=== PATIENT | female | born 1950 | race Caucasian/White ===

== ENCOUNTER 2017-06-08 07:57 | Outpatient (CLI) | payer BC | END 2017-06-08 07:58 | disposition home or self-care (01) | LOC: BICMAMMO 07:57 | PROVIDERS: ATTEND Internal Medicine | DX: Z78.0 Asymptomatic menopausal state (principal) | CPT/HCPCS: 77080 ==

== ENCOUNTER 2017-12-31 12:13 | Outpatient (CLI) | payer MEDICARE, OTHER ==
--- NOTE | 2017-12-31 15:08 | MRI ---
MRI OF LEFT HIP PERFORMED WITHOUT CONTRAST ENHANCEMNET: HISTORY: Left hip pain. COMPARISON: A 11/06/15 examination. FINDINGS: There are some arthritic changes of the lower lumbar spine. Pelvic ring is intact. SI joints are sy mmetric. I see no evidence for any type of pelvic insufficiency fracture. There are some arthritic changes of the symphysis. Visualized intrapelvic contents appear unremarkable. There is some mild hamstring tendinopathy present bilaterally. Small field of view images of the left hip show some increased signal change of the anterior superior labrum suggesting some degenerative-type tear that appears somewhat more prominent than on the prior exam. On the previous study, there are some trochanteric bursitis-type changes which have definitely improv ed as compared to that exam. There is some mild atrophy of the gluteus minimus muscle. Some persist ent increased signal change near the more muscular attachment of the gluteus minimus tendon suggestin g some mild tendinopathy. The gluteus and minimus tendon also shows some mild tendinopathy changes a nd some increased signal change which could be on the basis of a lower-grade partial tear. There are some arthritic changes of the left hip joint similar to the prior exam. IMPRESSION: 1. Suggestion of a degenerative-type tear of the anterior superior labrum. This appears slightly mo re prominent than on the previous examination. It is somewhat difficult to assess without arthrograp hy. 2. Improvement to the trochanteric bursitis changes still with some tendinopathy changes of the glut eus medius tendon. Partial low-grade tear of the gluteus minimus tendon insertion. 3. Mild hamstring tendinopathy change. POS: NGOC
== END 2017-12-31 12:14 | disposition home or self-care (01) ==
LOC: BICMRI 12:13
PROVIDERS: ATTEND Orthopaedic Surgery
DX: M76.892 Other specified enthesopathies of left lower limb, excluding foot (principal); S76.012A Strain of muscle, fascia and tendon of left hip, initial encounter

== ENCOUNTER 2018-09-17 08:56 | Outpatient (CLI) | payer MEDICARE, OTHER ==
--- NOTE | 2018-09-17 09:18 | RAD ---
Exam:Left hand 3 views HISTORY: Left hand pain. Swelling. COMPARISON: None FINDINGS: There is soft tissue swelling. There is degenerative change in the first carpometacarpal jonathon int space. There is calcification of the triangular fibrocartilage complex. There is mild loss of joint space height involving the distal interphalangeal joint space of the seco nd digit. Additional mild degenerative change involving the proximal interphalangeal joint fourth digit. There appears to be soft tissue swelling. No fractures. Radial styloid and ulnar styloid appear to be preserved. IMPRESSION: Multi focal mild to moderate degenerative change
== END 2018-09-17 08:57 | disposition home or self-care (01) ==
LOC: BICRAD 08:56
DX: M35.3 Polymyalgia rheumatica (principal); M19.042 Primary osteoarthritis, left hand

== ENCOUNTER 2018-12-31 12:07 | Outpatient (CLI) | payer MEDICARE, OTHER ==
--- NOTE | 2018-12-31 12:55 | MMO ---
Bilateral MAMMO Bilat Screen [facility]. CLINICAL HISTORY: Patient is 68 years old and is seen for screening. The patient has the following family history of breast cancer: maternal grandmother, at age 65. The patient has no personal history of cancer. The patient has a history of right Excisional Biopsy in 2004 - benign and bilateral Breast reduction in 1982 - benign. VIEWS: The views performed were: bilateral craniocaudal with tomosynthesis and bilateral mediolateral oblique with tomosynthesis. FILMS COMPARED: The present examination has been compared to prior imaging studies performed at [facility] on 04/08/2012, 03/20/2014, 03/29/2015 and 01/06/2017. This study has been interpreted with the assistance of computer-aided detection. MAMMOGRAM FINDINGS: There are scattered fibroglandular densities. There are benign appearing calcifications seen in both breasts. There are no suspicious masses, suspicious calcifications, or new areas of architectural distortion. IMPRESSION: THERE IS NO MAMMOGRAPHIC EVIDENCE OF MALIGNANCY. A ROUTINE FOLLOW-UP MAMMOGRAM IN 1 YEAR IS RECOMMENDED. THE RESULTS OF THIS EXAM WERE SENT TO THE PATIENT. ACR BI-RADS Category 2 - Benign finding MAMMOGRAPHY NOTE: 1. A negative mammogram report should not delay a biopsy if a dominant of clinically suspicious mass is present. 2. Approximately 10% to 15% of breast cancers are not detected by mammography. 3. Adenosis and dense breasts may obscure an underlying neoplasm. Reported by: PEDRO SAWYER MD Electonically Signed: [id number]
== END 2018-12-31 12:08 | disposition home or self-care (01) ==
LOC: BICMAMMO 12:07
PROVIDERS: ATTEND Internal Medicine
DX: Z12.31 Encounter for screening mammogram for malignant neoplasm of breast (principal); Z80.3 Family history of malignant neoplasm of breast; Z91.89 Other specified personal risk factors, not elsewhere classified; Z98.82 Breast implant status
CPT/HCPCS: 77063; 77067

== ENCOUNTER 2019-12-07 09:36 | Outpatient (CLI) | payer MEDICARE, OTHER ==
--- NOTE | 2019-12-07 10:07 | ULT ---
Exam: Bilateral renal ultrasound HISTORY: Acute renal insult. COMPARISON: None FINDINGS: Right kidney: Normal cortical echotexture. No hydronephrosis. Right kidney measurements: 9.7 x 5.3 x 6.0 cm. Left kidney: Normal cortical echotexture. No hydronephrosis. Small 0.7 cm anechoic focus in the infer ior pole may represent a cyst. Left kidney measurements 6.5 x 5.6 x 10.4 cm. Urinary bladder: No mucosal abnormality. Bilateral ureteral jets are identified. Bladder volume is 12 9 mL. IMPRESSION: 1. No hydronephrosis 2. Results study discussed with Dr. Barreto 12/07/2019 10:05 AM Code CR
== END 2019-12-07 09:37 | disposition home or self-care (01) ==
LOC: BICULT 09:36
PROVIDERS: ATTEND Surgery
DX: N28.9 Disorder of kidney and ureter, unspecified (principal)
CPT/HCPCS: 36415; 76770; 80053; 81001; 82570; 83930; 83935; 84300

== ENCOUNTER 2019-12-07 14:20 | Day surgery (SDC) | payer MEDICARE, OTHER ==
[2019-12-07] MEDS ORDERED: Ondansetron PF 4 MG/2 ML Vial IVP PRN (14:39)
[2019-12-07 15:36] VITALS: BP 143/72; TEMP 98.6
[2019-12-07] MEDS: Sodium Chloride 0.9% 1,000 ML IV SCH ×2 (15:36→16:43)
== END 2019-12-07 17:23 | disposition home or self-care (01) ==
LOC: ONC/OP 14:20
PROVIDERS: ATTEND Surgery
DX: E86.0 Dehydration (principal); Z88.0 Allergy status to penicillin; Z88.1 Allergy status to other antibiotic agents
CPT/HCPCS: 96360; 96361

== ENCOUNTER 2019-12-09 07:21 | Day surgery (SDC) | payer MEDICARE, OTHER ==
[2019-12-09] MEDS ORDERED: Sodium Chloride 0.9% 20 ML ONE (08:26)
[2019-12-09] MEDS ORDERED: Ondansetron PF 4 MG/2 ML Vial IVP PRN (08:28)
[2019-12-09] MEDS: Sodium Chloride 0.9% 1,000 ML IV SCH ×2 (08:44→09:39)
[2019-12-09 08:47] VITALS: BP 148/77; TEMP 97.8
== END 2019-12-09 13:23 | disposition home or self-care (01) ==
LOC: ONC/OP 07:21
PROVIDERS: ATTEND Surgery
DX: E86.0 Dehydration (principal); Z88.0 Allergy status to penicillin; Z88.1 Allergy status to other antibiotic agents
CPT/HCPCS: 36415; 80048; 96360; 96361

== ENCOUNTER 2020-01-18 14:07 | Outpatient (CLI) | payer MEDICARE, OTHER ==
--- NOTE | 2020-01-18 15:19 | MMO ---
Bilateral MAMMO Bilat Screen [facility]. CLINICAL HISTORY: Patient is 69 years old and is seen for screening. The patient has the following family history of breast cancer: maternal grandmother, at age 65. The patient has no personal history of cancer. The patient has a history of right Excisional Biopsy in 2004 - benign and bilateral Breast reduction in 1982 - benign. VIEWS: The views performed were: bilateral craniocaudal with tomosynthesis and bilateral mediolateral oblique with tomosynthesis. FILMS COMPARED: The present examination has been compared to prior imaging studies performed at [facility] on 03/20/2014, 03/29/2015, 01/06/2017 and 12/31/2018. This study has been interpreted with the assistance of computer-aided detection. MAMMOGRAM FINDINGS: There are scattered fibroglandular densities. Finding 1: There are stable benign appearing calcifications seen in both breasts. Finding 2: There are stable benign appearing densities seen in both breasts. There are no suspicious masses, suspicious calcifications, or new areas of architectural distortion. IMPRESSION: THERE IS NO MAMMOGRAPHIC EVIDENCE OF MALIGNANCY. A ROUTINE FOLLOW-UP MAMMOGRAM IN 1 YEAR IS RECOMMENDED. THE RESULTS OF THIS EXAM WERE SENT TO THE PATIENT. ACR BI-RADS Category 2 - Benign finding MAMMOGRAPHY NOTE: 1. A negative mammogram report should not delay a biopsy if a dominant of clinically suspicious mass is present. 2. Approximately 10% to 15% of breast cancers are not detected by mammography. 3. Adenosis and dense breasts may obscure an underlying neoplasm. Reported by: EJ FOSS MD Electonically Signed: [id number]
== END 2020-01-18 14:08 | disposition home or self-care (01) ==
LOC: BICMAMMO 14:07
PROVIDERS: ATTEND Internal Medicine
DX: Z12.31 Encounter for screening mammogram for malignant neoplasm of breast (principal); Z80.3 Family history of malignant neoplasm of breast; Z91.89 Other specified personal risk factors, not elsewhere classified; Z98.82 Breast implant status
CPT/HCPCS: 77063; 77067

== ENCOUNTER 2020-01-24 07:52 | Outpatient (CLI) | payer MEDICARE, OTHER ==
--- NOTE | 2020-01-24 10:48 | CT ---
CT ABDOMEN AND PELVIS WITHOUT CONTRAST: HISTORY: Abdominal pain. COMPARISON: None. FINDINGS: The lung bases are clear. No pericardial effusion. No nephroureteral lithiasis or hydroureteral nephrosis. No secondary evidence of a recently passed s tone. Moderate diverticular disease throughout the sigmoid colon without active current inflammation. No d ilated loops of large or small bowel. Pancreas is visualized and is normal. Very small hiatal hernia. No acute osseous abnormalities. Moderate facet arthrosis lower lumbar spi ne. Small anterior abdominal wall seroma. IMPRESSION: 1. No acute inflammatory process of the abdomen and pelvis. 2. Moderate diverticular disease of the sigmoid colon without active current inflammation. 3. Similar appearance of benign hepatic cysts. POS: OFF
== END 2020-01-24 07:53 | disposition home or self-care (01) ==
LOC: BICCT 07:52
PROVIDERS: ATTEND Internal Medicine Gastroenterology
DX: R10.9 Unspecified abdominal pain (principal); D64.9 Anemia, unspecified; K57.30 Diverticulosis of large intestine without perforation or abscess without bleeding; K76.89 Other specified diseases of liver
CPT/HCPCS: 74176

== ENCOUNTER 2021-05-20 10:38 | Outpatient (CLI) | payer MEDICARE, OTHER | END 2021-05-20 10:39 | disposition home or self-care (01) | LOC: BICRAD 10:38 | PROVIDERS: ATTEND Physical Therapist | DX: M54.50 Low back pain, unspecified (principal); M25.551 Pain in right hip; M54.6 Pain in thoracic spine; M47.814 Spondylosis without myelopathy or radiculopathy, thoracic region; M41.9 Scoliosis, unspecified; M43.17 Spondylolisthesis, lumbosacral region; M47.817 Spondylosis without myelopathy or radiculopathy, lumbosacral region | CPT/HCPCS: 72072; 72100 ==

== ENCOUNTER 2021-05-27 12:25 | Outpatient (CLI) | payer MEDICARE, OTHER | END 2021-05-27 12:26 | disposition home or self-care (01) | LOC: BICMAMMO 12:25 | PROVIDERS: ATTEND Nurse Practitioner Family | DX: Z12.31 Encounter for screening mammogram for malignant neoplasm of breast (principal); Z80.3 Family history of malignant neoplasm of breast; Z98.890 Other specified postprocedural states | CPT/HCPCS: 77063; 77067 ==

== ENCOUNTER 2021-06-14 09:50 | Outpatient (CLI) | payer MEDICARE, OTHER | END 2021-06-14 09:51 | disposition home or self-care (01) | LOC: BICULT 09:50 | PROVIDERS: ATTEND Nurse Practitioner Family | DX: R09.89 Other specified symptoms and signs involving the circulatory and respiratory systems (principal); E78.5 Hyperlipidemia, unspecified; Z82.49 Family history of ischemic heart disease and other diseases of the circulatory system | CPT/HCPCS: 76700 ==

== ENCOUNTER 2021-06-14 10:14 | Outpatient (CLI) | payer MEDICARE, OTHER | END 2021-06-14 10:15 | disposition home or self-care (01) | LOC: BICMAMMO 10:14 | PROVIDERS: ATTEND Nurse Practitioner Family | DX: Z13.820 Encounter for screening for osteoporosis (principal); M85.851 Other specified disorders of bone density and structure, right thigh; M85.852 Other specified disorders of bone density and structure, left thigh | CPT/HCPCS: 77080 ==

== ENCOUNTER 2021-11-07 13:02 | Outpatient (CLI) | payer MEDICARE, OTHER | END 2021-11-07 13:03 | disposition home or self-care (01) | LOC: BICRAD 13:02 | PROVIDERS: ATTEND Physical Therapist | DX: M25.551 Pain in right hip (principal) ==

== ENCOUNTER 2022-07-11 10:55 | Outpatient (CLI) | payer MEDICARE, OTHER | END 2022-07-11 10:56 | disposition home or self-care (01) | LOC: NM 10:55 | PROVIDERS: ATTEND Nurse Practitioner Family | DX: D35.1 Benign neoplasm of parathyroid gland (principal); R25.2 Cramp and spasm | CPT/HCPCS: 78072; A9500 ==

== ENCOUNTER 2022-07-16 10:14 | Outpatient (CLI) | payer MEDICARE, OTHER | END 2022-07-16 10:15 | disposition home or self-care (01) | LOC: BICMAMMO 10:14 | PROVIDERS: ATTEND Nurse Practitioner Family | DX: Z12.31 Encounter for screening mammogram for malignant neoplasm of breast (principal); R92.8 Other abnormal and inconclusive findings on diagnostic imaging of breast | CPT/HCPCS: 77063; 77067 ==

== ENCOUNTER 2022-07-23 08:48 | Outpatient (CLI) | payer MEDICARE, OTHER | END 2022-07-23 08:49 | disposition home or self-care (01) | LOC: BICMAMMO 08:48 | PROVIDERS: ATTEND Nurse Practitioner Family | DX: N64.89 Other specified disorders of breast (principal) | CPT/HCPCS: 76642; 77065; G0279 ==

== ENCOUNTER 2023-01-22 08:56 | Outpatient (CLI) | payer MEDICARE, OTHER | END 2023-01-22 08:57 | disposition home or self-care (01) | LOC: BICMAMMO 08:56 | PROVIDERS: ATTEND Nurse Practitioner Family | DX: N64.89 Other specified disorders of breast (principal) | CPT/HCPCS: 77065; G0279 ==